=== PATIENT | male | born 1970 | race Caucasian/White ===

== ENCOUNTER 2017-08-13 14:47 | Inpatient (IN) | payer MEDICAID, OTHER ==
[~2017-08-13] VITALS: Ht 170.2 cm; Wt 137.0 kg
[2017-08-13 14:59] VITALS: BP 163/117
--- NOTE | 2017-08-13 15:07 | NUR ---
Patient to bed 07.
--- NOTE | 2017-08-13 15:08 | NUR ---
PT REFERRED TO ER PER PCP FOR EVALUATION OF ELEVATED BLOOD SUGAR. HX DM. PT STS GENERAL WEAKNESS & THRISTY. DENIES N/V/D; SKIN IS PINK/WARM/DRY; AAOX4 WITH EVEN AND STEADY GAIT; LUNGS CLEAR BL; HR EVEN AND REGULAR; PT DENIES ANY FEVER, CP, SOB, OR COUGH AT THIS TIME; PATIENT STATES PAIN OF 0/10 AT THIS TIME; VSS; PATIENT POSITIONED FOR COMFORT; HOB ELEVATED; BEDRAILS UP X2; BED DOWN. ER MD MADE AWARE OF PT STATUS.
[2017-08-13] MEDS ORDERED: NACL 0.9% 1,000 ML IV ONE ×2 (15:10→16:40)
[2017-08-13 15:24] LABS: BASOPHILS # (AUTO) 0.1 K/uL (0.00-0.22); BASOPHILS % (AUTO) 1.5 % (0.0-2.0); EOSINOPHILS # (AUTO) 0.2 K/uL (0-0.4); EOSINOPHILS % (AUTO) 1.9 % (0.0-4.0); HEMATOCRIT 48.1 % (36-52); HEMOGLOBIN 15.9 g/dL (12.0-18.0); LYMPHOCYTES # (AUTO) 2.8 K/uL (2.0-11.5); LYMPHOCYTES % (AUTO) 29.9 % (20.5-51.1); MEAN CORPUSCULAR HEMOGLOBIN 30 pg (27-31); MEAN CORPUSCULAR HGB CONC 33 g/dL (33-37); MEAN CORPUSCULAR VOLUME 91 fL (80-94); MONOCYTES # (AUTO) 0.9 K/uL (0.8-1.0); MONOCYTES % (AUTO) 9.4 % (1.7-9.3); NEUTROPHILS # (AUTO) 5.5 K/uL (1.8-7.7); NEUTROPHILS % (AUTO) 57.3 % (42.2-75.2); PLATELET COUNT (AUTO) 216 K/uL (140-450); RED CELL DISTRIBUTION WIDTH 12.4 % (11.6-13.7); WHITE BLOOD COUNT (AUTO) 9.5 K/uL (4.8-10.8)
--- NOTE | 2017-08-13 15:33 | NUR ---
Patient being evaluated by DR NOBLE at bedside.
--- NOTE | 2017-08-13 15:36 | NUR ---
EKG AT BEDSIDE.
--- NOTE | 2017-08-13 15:39 | NUR ---
X RAY AT BEDSIDE.
[2017-08-13 16:20] LABS: ALBUMIN 3.7 g/dL (3.4-5.0); ANION GAP 14.4 (8-16); CARBON DIOXIDE 23.8 mmol/L (21-32); CHLORIDE 98 mmol/L (98-107); GFR ARICAN-AMERICAN 102 mL/min (>90); POTASSIUM 4.2 mmol/L (3.5-5.1); SODIUM SERUM 132 mmol/L (136-145); TOTAL BILIRUBIN 0.3 mg/dL (0.0-1.0); UREA NITROGEN, BLOOD 15 mg/dL (7-18)
[2017-08-13 16:23] LABS: GLUCOSE 436 mg/dL (74-106)
[2017-08-13] MEDS ORDERED: INSULIN HUMAN REGULAR 100 UNITS/ML 10 ML VIAL IVP ONE (16:25)
--- NOTE | 2017-08-13 16:25 | NUR ---
GOT REPORT FROM [facility]; LAB. " [id number]" NOTIFIED DR NOBLE.
--- NOTE | 2017-08-13 16:27 | NUR ---
Patient appears to be resting comfortably in bed. BP 149/94, P 86, Respirations even and unlabored.
[2017-08-13] MEDS ORDERED: ACETAMINOPHEN 325 MG TAB PO PRN (16:35)
[2017-08-13] MEDS ORDERED: HYDROcodone/APAP 7.5/325 MG 1 TAB PO PRN (16:35)
[2017-08-13] MEDS ORDERED: MORPHINE SULFATE 2 MG/ML SYR IVP PRN (16:35)
[2017-08-13] MEDS ORDERED: ONDANSETRON 4 MG/2 ML VIAL IM/IVP PRN (16:35)
[2017-08-13] MEDS ORDERED: DOCUSATE SODIUM 100 MG GELCAP PO PRN (16:35)
[2017-08-13 16:41] LABS: ASPARTATE AMINOTRANSFERASE < 5 U/L (15-37)
[2017-08-13] MEDS ORDERED: DEXTROSE 50% 50 ML SYR IVP PRN (16:45)
--- NOTE | 2017-08-13 16:58 | NUR ---
REPORT TO IDA BENAVIDES.
--- NOTE | 2017-08-13 16:59 | NUR ---
Patient will be admitted to care of DR ROUSSEAU. Admited to TELE. Will go to room 106A. Belongings list completed. Report to IDA BENAVIDES.
[2017-08-13 17:15] VITALS: BP 145/91
--- NOTE | 2017-08-13 17:15 | NUR ---
PT ARRIVED TO UNIT FROM ER, PT IS AAOX4, ON ROOM AIR, IV TO LEFT HAND PATENT AND INTACT, SKIN INTACT, INITIAL ASSESSMENT COMPLETED, REVIEWED PLAN OF CARE WITH PT, ORIENTED PT TO ROOM AND ENVIRONMENT, CALL LIGHT WITHIN REACH. ALL SAFETY PRECAUTION IN PLACE.
[2017-08-13] MEDS: NACL 0.9% 1,000 ML IV SCH (17:26)
[2017-08-13 17:28] LABS: CHOL/HDL RATIO 5.5 (1-4.5); FREE T4 (FREE THYROXINE) 0.9 ng/dL (0.76-1.46); THYROID STIMULATING HORMONE 1.55 uIU/mL (0.34-3.74)
[2017-08-13] MEDS ORDERED: LISI-420 PO (18:32)
[2017-08-13] MEDS ORDERED: GABA300C PO (18:32)
--- NOTE | 2017-08-13 19:09 | NUR ---
ENDORSED PLAN OF CARE TO NIGHT NURSE, PT IN STABLE CONDITION
--- NOTE | 2017-08-13 19:10 | NUR ---
RECEIVED REPORT FROM AM NURSE. PT IS AAOX4, RESTING COMFORTABLY IN BED. NO SIGNS OF ACUTE DISTRESS NOTED. IV ACCESS PATENT, INTACT AND ASYMPTOMATIC. ON ROOM AIR, TELE MONITOR. BOWEL SIGNS PRESENT ON ALL FOUR QUADRANTS. PLAN OF CARE DISCUSSED, PT VERBALIZED UNDERSTANDING. BED ON LOW POSITION, BILATERAL HALF SIDE RAILS UP, CALL LIGHT WITHIN REACH, WILL CONTINUE TO MONITOR.
[2017-08-13 19:45] LABS: APPEARANCE,URINE CLEAR (CLEAR); BILIRUBIN,URINE NEGATIVE (NEGATIVE); BLOOD, URINE NEGATIVE (NEGATIVE); COLOR,URINE YELLOW (YELLOW); LEUKOCYTE ESTERASE ,URINE NEGATIVE (NEGATIVE); NITRITE, URINE NEGATIVE (NEGATIVE); UGLUCOSE 3+ (NEGATIVE)
[2017-08-13 19:48] LABS: RBC,URINE 0-5 (RARE) /HPF (0-5); WBC,URINE 0-5 (RARE) /HPF (0-5)
[2017-08-13 19:52] LABS: BARBITURATE, URINE NEG. ng/ml (NEG <=200); BENZODIAZEPINE, URINE NEG. ng/mL (NEG <=200); CANNABINOID, URINE NEG. ng/mL (NEG <=50); COCAINE, URINE NEG. ng/mL (NEG <=300); OPIATE, URINE NEG. ng/mL (NEG <=2000); PHENCYCLIDINE SCREEN,URINE NEG. ng/mL (NEG <=25)
[2017-08-13 20:00] VITALS: BP 127/74
[2017-08-13] MEDS: GABAPENTIN 300 MG CAP PO SCH (20:32)
[2017-08-13] MEDS: BLOOD GLUCOSE MONITORING 1 DEV DEV FS SCH (20:43)
[2017-08-13] MEDS: INSULIN LISPRO SLIDING SCALE 100 UNITS/ML VIAL SUBQ PRN (20:51)
--- NOTE | 2017-08-13 23:00 | NUR ---
PT IS AWAKE, RESTING COMFORTABLY IN BED. GAVE HIM A CHICKEN SALAD SANDWICH WITH MILK PER HIS REQUEST. NO SIGNS OF ACUTE DISTRESS. BED ON LOW POSITION, BILATERAL HALF SIDE RAILS UP, CALL LIGHT WITHIN REACH, WILL CONTINUE TO MONITOR.
[2017-08-14] VITALS: BP 123/83
--- NOTE | 2017-08-14 01:05 | NUR ---
NOTIFIED BY SENIOR ADVOCATE THAT PT IS HAVING UNCONTROLLED A-FIB HR 129. ASSESSED PT, VS HR 119, 02 94, BP 132/74. EKG LEAD ARE IN PLACE. PT STATES HE FEELS FINE. PT REPOSITIONED. DR MIRZA NOTIFIED, STATED HE WILL CHECK ON PT HIMSELF AND PUT IN NEW EKG READING STAT. ORDERS RECEIVED.
[2017-08-14] MEDS ORDERED: METOPROLOL 50 MG TAB PO SCH (01:15)
[2017-08-14] MEDS ORDERED: ZOLPIDEM 5 MG TAB PO SCH ×2 (01:50→23:50)
--- NOTE | 2017-08-14 01:50 | NUR ---
PT GIVEN METROPOLOL, PT TOLERATED WELL. ON TELE MONITOR. WILL CONTINUE TO MONITOR.
--- NOTE | 2017-08-14 03:12 | NUR ---
PT IS SLEEPING, EASY TO AROUSE. NO SIGNS OF ACUTE DISTRESS. BED ON LOW POSITION, BILATERAL HALF SIDE RAILS UP, CALL LIGHT WITHIN REACH, WILL CONTINUE TO MONITOR.
[2017-08-14 04:00] VITALS: BP 124/80
[2017-08-14 05:32] LABS: HEMATOCRIT 47.9 % (36-52); HEMOGLOBIN 15.7 g/dL (12.0-18.0); MEAN CORPUSCULAR HEMOGLOBIN 30 pg (27-31); MEAN CORPUSCULAR HGB CONC 33 g/dL (33-37); MEAN CORPUSCULAR VOLUME 92 fL (80-94); PLATELET COUNT (AUTO) 203 K/uL (140-450); RED BLOOD CELL COUNT(AUTO) 5.22 MIL/uL (4.20-6.10); RED CELL DISTRIBUTION WIDTH 12.5 % (11.6-13.7); WHITE BLOOD COUNT (AUTO) 9.8 K/uL (4.8-10.8)
[2017-08-14] MEDS: BLOOD GLUCOSE MONITORING 1 DEV DEV FS SCH ×4 (06:01→21:34)
[2017-08-14] MEDS: INSULIN LISPRO SLIDING SCALE 100 UNITS/ML VIAL SUBQ PRN ×4 (06:09→21:40)
[2017-08-14 06:30] LABS: ANION GAP 10.6 (8-16); CARBON DIOXIDE 25.2 mmol/L (21-32); CREATININE 0.7 mg/dL (0.7-1.3); POTASSIUM 3.8 mmol/L (3.5-5.1)
[2017-08-14] MEDS: NACL 0.9% 1,000 ML IV SCH ×4 (06:38→16:00)
[2017-08-14 06:46] LABS: EOSINOPHILS % (MANUAL) 1 % (0-4); LYMPHOCYTES % (MANUAL) 41 % (20-46); MONOCYTES % (MANUAL) 7 % (5-12)
--- NOTE | 2017-08-14 07:22 | NUR ---
ENDORSED PT TO AM NURSE FOR CONTINUITY OF CARE. PT IS IN STABLE CONDITION.
--- NOTE | 2017-08-14 07:23 | NUR ---
RECEIVED REPORT FROM FINANCIAL SERVICES OFFICER NURSE AT BEDSIDE FOR CONTINUITY OF CARE. PT IS LYING IN BED SLEEPING WITH VISIBLE RESPIRATIONS. NO SIGNS OF DISTRESS. BED IN LOW POSITION. CALL LIGHT WITHIN REACH. UPDATED BOARD. WILL CONTINUE TO MONITOR.
--- NOTE | 2017-08-14 07:45 | NUR ---
PATIENT SITTING ON BED WITH BREAKFAST TRAY IN FRONT. NO DISTRESS NOTED. DENIES ANY PAIN OR DISCOMFORTS AT THIS TIME. RESPIRATIONS EVEN, UNLABORED, ON ROOM AIR. IV IS PATENT, INTACT, AND INFUSING. SKIN COLOR APPROPRIATE TO ETHNICITY, SKIN TEMPERATURE WARM TO TOUCH, SKIN IS INTACT. MEDICATIONS DUE GIVEN. PLAN OF CARE REVIEWED WITH PATIENT. PATIENT VERBALIZED UNDERSTANDING. SAFETY MEASURES IN PLACE, CALL LIGHT WITHIN REACH. WILL CONTINUE TO MONITOR.
[2017-08-14 08:00] VITALS: BP 106/83
[2017-08-14] MEDS ORDERED: metFORMIN 500 MG TAB PO SCH (08:00)
[2017-08-14] MEDS ORDERED: TETRACAINE HCL/PF 0.5% OPTH 4 ML BTL OP PRN (08:00)
--- NOTE | 2017-08-14 08:10 | NUR ---
PT GOT UP OUT OF BED TO USE RESTROOM AND AMBULATED AROUND THE UNIT INDEPENDENTLY. WALKED WITH STEADY GAIT WITH IV POLE. NO WEAKNESS OR PAIN DURING AMBULATION WAS REPORTED BY PT.
--- NOTE | 2017-08-14 08:30 | NUR ---
DR. WHITTAKER AT BEDSIDE GIVING EYE DROP MEDICATION AND MEASURING EYES FOR GLAUCOMA. WILL CONTINUE TO MONITOR.
[2017-08-14] MEDS: FENOFIBRATE 48 MG TAB PO SCH (08:44)
[2017-08-14] MEDS: TAMSULOSIN 0.4 MG CAP PO SCH (08:44)
[2017-08-14 08:45] LABS: T4 (THYROXINE) 6.9 ug/dL (4.5 - 12.0)
[2017-08-14] MEDS: ATORVASTATIN 20 MG TAB PO SCH (08:45)
[2017-08-14] MEDS: LISINOPRIL 20 MG TAB PO SCH (08:45)
--- NOTE | 2017-08-14 09:00 | NUR ---
PATIENT LYING IN BED COMFORTABLY. NO DISTRESS NOTED. DENIES ANY PAIN AT THIS TIME. RESPIRATIONS EVEN, UNLABORED, ON ROOM AIR. MEDICATIONS DUE GIVEN. PROVIDED PATIENT EDUCATION ON DM MEDICATION REGIMEN AND SIDE EFFECTS GIVEN TO PATIENT. EDUCATED PATIENT ON S/S OF HYPO/HYPERGLYCEMIA. PATIENT VERBALIZED UNDERSTANDING. WILL CONTINUE TO MONITOR. SAFETY MEASURES IN PLACE, CALL LIGHT WITHIN REACH. WILL CONTINUE TO MONITOR.
[2017-08-14] MEDS: metFORMIN 500 MG TAB PO SCH ×2 (09:05→16:58)
--- NOTE | 2017-08-14 09:08 | NUR ---
PATIENT HAS BEEN SCREENED AND CATEGORIZED HIGH NUTRITION RISK. PATIENT WILL BE SEEN WITHIN 1-2 DAYS OF ADMISSION. 08/14/17-08/15/[address]
--- NOTE | 2017-08-14 10:40 | NUR ---
08/14/17 RD INITIAL ASSESSMENT COMPLETED PLEASE REFER TO NUTRITION ASSESSMENT UNDER CARE ACTIVITY FOR ESTIMATED NUTRITIONAL NEEDS. 1. CONTINUE 60 GMS CONSISTENT CARBOHYDRATE DIET 2. PROVIDE NUTRITION EDUCATION NEEDED 3. RD TO FOLLOW UP WITHIN 3-5 DAYS; MODERATE RISK JACK LAO RD
--- NOTE | 2017-08-14 11:00 | NUR ---
PATIENT PLACED ON NPO FOR ABDOMINAL ULTRASOUND SCHEDULED LATER TODAY.
[2017-08-14 12:00] VITALS: BP 105/64
--- NOTE | 2017-08-14 13:00 | NUR ---
PATIENT LYING IN BED SLEEPING. NO DISTRESS NOTED. RESPIRATIONS EVEN, UNLABORED, ON ROOM AIR. IV PATENT, INTACT AND INFUSING. SAFETY MEASURES IN PLACE, CALL LIGHT WITHIN REACH. WILL CONTINUE TO MONITOR.
--- NOTE | 2017-08-14 15:00 | NUR ---
US TECH CAME TO SEE PT FOR ABDOMINAL US. FOUND THAT PT HAD SOMETHING TO EAT. NO US DONE. TECH ADVISED TO HAVE PT NPO AFTER DINNER AND WILL DO ABD US IN MORNING. REINFORCED INSTRUCTIONS TO PT. STATED OK TO BE NPO AT NIGHT.
--- NOTE | 2017-08-14 15:30 | NUR ---
PATIENT SITTING IN BED WATCHING TV. NO DISTRESS NOTED. DENIES ANY PAIN. RESPIRATIONS EVEN, UNLABORED, ON ROOM AIR. MEDICATIONS GIVEN, AND REINFORCED DM MEDICATION EDUCATION AND S/S OF HYPO/HYPERGLYCEMIA. IV PATENT, INTACT, AND INFUSING. REINFORCED NPO STATUS AFTER MIDNIGHT FOR ABD ULTRASOUND TOMORROW. PATIENT VERBALIZED UNDERSTANDING. SAFETY MEASURES IN PLACE, CALL LIGHT WITHIN REACH. WILL CONTINUE TO MONITOR.
[2017-08-14 16:00] VITALS: BP 107/70
--- NOTE | 2017-08-14 17:30 | NUR ---
PATIENT AMBULATING INDEPENDENTLY AROUND HOSPITAL HALLWAYS WITH STEADY GAIT. SHOWER ORDERS PLACED BY DR. WHITTAKER. PATIENT REQUESTING TO HAVE A SHOWER AFTER DINNER. WILL CONTINUE TO MONITOR.
--- NOTE | 2017-08-14 18:00 | NUR ---
PT TRANSFERRED TO ROOM 111A. MOVED ALL PERSONAL BELONGINGS TO ROOM. PT IS SLEEPING IN BED WITH VISIBLE RESPIRATIONS. NO SIGNS OF DISTRESS. BED IN LOW POSITION. CALL LIGHT WITHIN REACH. WILL CONTINUE TO MONITOR.
--- NOTE | 2017-08-14 19:22 | NUR ---
GAVE REPORT TO AERONAUTICAL TEST ENGINEER NURSE. PATIENT IN STABLE CONDITION.
--- NOTE | 2017-08-14 19:27 | NUR ---
RECEIVED REPORT FROM AM NURSE. PT SLEEPING, EASY TO AROUSE. NO SIGNS OF ACUTE DISTRESS NOTED. IV ACCESS ASYMPTOMATIC, INTACT AND PATENT. ON ROOM AIR. BED ON LOW POSITION, BILATERAL HALF SIDE RAILS UP, CALL LIGHT WITHIN REACH, WILL CONTINUE TO MONITOR.
[2017-08-14 20:00] VITALS: BP 95/55
[2017-08-14] MEDS: GABAPENTIN 300 MG CAP PO SCH (21:35)
[2017-08-15] VITALS: BP 99/60
[2017-08-15] MEDS: NACL 0.9% 1,000 ML IV SCH ×2 (00:12→10:03)
--- NOTE | 2017-08-15 02:36 | NUR ---
PT IS SLEEPING, EASY TO AROUSE. NO SIGS OF ACUTE DISTRESS NOTED. BED ON LOW POSITION, BILATERAL HALF SIDE RAILS UP, CALL LIGHT WITHIN REACH, WILL CONTINUE TO MONITOR.
[2017-08-15 04:00] VITALS: BP 120/72
--- NOTE | 2017-08-15 04:12 | NUR ---
PATIENT LYING IN BED SLEEPING, EASY TO AROUSE. NO DISTRESS NOTED. RESPIRATIONS EVEN, UNLABORED, ON ROOM AIR. IV PATENT, INTACT AND INFUSING. SAFETY MEASURES IN PLACE, CALL LIGHT WITHIN REACH. BED ON LOW POSITION, BILATERAL HALF SIDE RAILS UIP, WILL CONTINUE TO MONITOR.
--- NOTE | 2017-08-15 05:27 | NUR ---
PT SLEEPING, EASY TO AROUSE. NO DISTRESS NOTED. RESPIRATIONS EVEN, UNLABORED, ON ROOM AIR. SAFETY MEASURES IN PLACE, CALL LIGHT WITHIN REACH. BED ON LOW POSITION, BILATERAL HALF SIDE RAILS UIP, WILL CONTINUE TO MONITOR.
[2017-08-15 05:57] LABS: BASOPHILS # (AUTO) 0.4 K/uL (0.00-0.22); BASOPHILS % (AUTO) 4.1 % (0.0-2.0); EOSINOPHILS # (AUTO) 0.2 K/uL (0-0.4); EOSINOPHILS % (AUTO) 1.9 % (0.0-4.0); HEMATOCRIT 47.5 % (36-52); LYMPHOCYTES # (AUTO) 2.8 K/uL (2.0-11.5); LYMPHOCYTES % (AUTO) 30.9 % (20.5-51.1); MEAN CORPUSCULAR HEMOGLOBIN 31 pg (27-31); MEAN CORPUSCULAR HGB CONC 34 g/dL (33-37); MEAN CORPUSCULAR VOLUME 90 fL (80-94); MONOCYTES # (AUTO) 0.7 K/uL (0.8-1.0); MONOCYTES % (AUTO) 7.6 % (1.7-9.3); NEUTROPHILS # (AUTO) 4.8 K/uL (1.8-7.7); NEUTROPHILS % (AUTO) 55.5 % (42.2-75.2); PLATELET COUNT (AUTO) 193 K/uL (140-450); RED BLOOD CELL COUNT(AUTO) 5.26 MIL/uL (4.20-6.10); RED CELL DISTRIBUTION WIDTH 12.3 % (11.6-13.7); WHITE BLOOD COUNT (AUTO) 8.9 K/uL (4.8-10.8)
[2017-08-15 06:16] LABS: ANION GAP 11.1 (8-16); CREATININE 0.8 mg/dL (0.7-1.3); POTASSIUM 4.1 mmol/L (3.5-5.1)
[2017-08-15] MEDS: BLOOD GLUCOSE MONITORING 1 DEV DEV FS SCH ×2 (06:35→11:17)
[2017-08-15] MEDS: INSULIN LISPRO SLIDING SCALE 100 UNITS/ML VIAL SUBQ PRN ×2 (06:38→11:18)
--- NOTE | 2017-08-15 07:25 | NUR ---
ASSUMED CONTINUITY OF CARE. NO SIGNS AND SYMPTOMS OF ACUTE DISTRESS NOTED. INITIAL ASSESSMENT DONE. KEEP COMFORTABLE ON BED. EXPLAINED DIAGNOSIS, PLAN OF CARE, PAIN MANAGEMENT TEACHING, USE OF CALL LIGHT/BED/TV/BATHROOM. VERBALIZED UNDERSTANDING. CALL LIGHT WITHIN REACH.
--- NOTE | 2017-08-15 07:43 | NUR ---
ENDORSED PT TO AM NURSE FOR CONTINUITY OF CARE. PT IS IN STABLE CONDITION
[2017-08-15] MEDS: TAMSULOSIN 0.4 MG CAP PO SCH (07:51)
[2017-08-15] MEDS: metFORMIN 500 MG TAB PO SCH (07:51)
[2017-08-15 08:00] VITALS: BP 142/92
[2017-08-15] MEDS: ATORVASTATIN 20 MG TAB PO SCH (08:45)
[2017-08-15] MEDS: FENOFIBRATE 48 MG TAB PO SCH (08:46)
[2017-08-15] MEDS: LISINOPRIL 20 MG TAB PO SCH (08:51)
--- NOTE | 2017-08-15 10:11 | NUR ---
DR. ROUSSEAU AND GROUP OF RESIDENTS MD MADE THEIR ROUNDS AND SPOKE TO PT..
--- NOTE | 2017-08-15 10:50 | NUR ---
AMBULATES ON HALLWAY WITHOUT ASSISTANCE. TOLERATED WELL. HAD STEADY GAIT AND BALANCE. NO C/O PAIN. NO SOB, NOTED.
[2017-08-15 12:00] VITALS: BP 115/66
[2017-08-15] MEDS ORDERED: LISI-420 PO (13:12)
[2017-08-15] MEDS ORDERED: ACET-9529 PO (13:12)
[2017-08-15] MEDS ORDERED: TAMS0.4C96 PO (13:12)
[2017-08-15] MEDS ORDERED: HUMSLIDE SUBQ (13:12)
[2017-08-15] MEDS ORDERED: GLU500 PO (13:12)
[2017-08-15] MEDS ORDERED: GABA300C PO (13:12)
[2017-08-15] MEDS ORDERED: ATOR20TA40 PO (13:12)
--- NOTE | 2017-08-15 13:30 | NUR ---
EXPLAINED ABOUT MD D/C ORDER, D/C INSTRUCTIONS AND TEACHING, MD FOLLOW-UP, DM EDUCATIONS AND INSULIN ADMINISTRATION PER MD ORDER, MD PRESCRIPTIONS LIST EDUCATION, PAIN MANAGEMENT TEACHING. VERBALIZED UNDERSTANDING.
--- NOTE | 2017-08-15 14:15 | NUR ---
REFUSED WHEELCHAIR FOR D/C. D/C HOME, AWAKE, ALERT, AND ORIENTED X4. SPEECH CLEAR. NO C/O PAIN. IN STABLE CONDITION. INFORMED CHARGE NURSE SALVATORE HAWK.
== END 2017-08-15 14:15 | disposition home or self-care (01) | DRG 420 ==
LOC: MED 14:47 → MTU 16:41
PROVIDERS: ADMIT Family Medicine; ATTEND Family Medicine
DX: E11.65 Type 2 diabetes mellitus with hyperglycemia (principal); N17.0 Acute kidney failure with tubular necrosis; K85.90 Acute pancreatitis without necrosis or infection, unspecified; Z68.42 Body mass index [BMI] 45.0-49.9, adult; D68.59 Other primary thrombophilia; E66.01 Morbid (severe) obesity due to excess calories; E78.5 Hyperlipidemia, unspecified; H40.9 Unspecified glaucoma; F15.10 Other stimulant abuse, uncomplicated; I10 Essential (primary) hypertension; R33.9 Retention of urine, unspecified; F17.210 Nicotine dependence, cigarettes, uncomplicated; E87.1 Hypo-osmolality and hyponatremia; Z88.8 Allergy status to other drugs, medicaments and biological substances; Z79.899 Other long term (current) drug therapy; Z83.3 Family history of diabetes mellitus; Z71.3 Dietary counseling and surveillance; Z71.6 Tobacco abuse counseling; Z79.84 Long term (current) use of oral hypoglycemic drugs
CPT/HCPCS: 36415; 36600; 71010; 76700; 80048; 80053; 80305; 81001; 82150; 82803; 82948; 83036; 83690; 83735; 83880; 84100; 84436; 84439; 84443; 84479; 84484; 85025; 85610; 85730; 87081; 93005; 93925; 93970; 96361; 96374; 99285; J1815; J7030; Q0092

== ENCOUNTER 2018-05-12 11:27 | Emergency (ER) | payer SELFPAY ==
[~2018-05-12] VITALS: Ht 175.3 cm; Wt 131.1 kg
[~2018-05-12 11:27] MED LIST: ACET-9529 PO; ATOR20TA40 PO; GABA300C PO; GLU500 PO; HUMSLIDE SUBQ; LISI-420 PO; TAMS0.4C96 PO
[2018-05-12 11:29] VITALS: BP 107/71
--- NOTE | 2018-05-12 11:30 | NUR ---
48/M SHIREEN FROM FIELD FOR SUDDEN ONSET OF SOB, ON ARRIVAL HE IS AWAKE AND ALERT ON HHN PER EMS ABLE TO SPEAK IN FULL SENTENCES.DENIES N/V/D; SKIN IS PINK/WARM/DRY; AAOX4 WITH EVEN AND STEADY GAIT; LUNGS CLEAR BL; HR EVEN AND REGULAR; PT DENIES ANY FEVER, CP OR COUGH AT THIS TIME; PATIENT STATES PAIN OF 0/10 AT THIS TIME; VSS; PATIENT POSITIONED FOR COMFORT; HOB ELEVATED; BEDRAILS UP X2; BED DOWN. ER MADE AWARE OF PT STATUS. Addendum: 05/12/18 at 1204 by [email or web address] hx of dm .pt stated ran out of meds.
--- NOTE | 2018-05-12 11:32 | NUR ---
Patient being evaluated by DR SANTIAGO at bedside.
[2018-05-12] MEDS ORDERED: methylPREDNISolone SS 125 MG/2 ML VIAL IVP ONE (12:05)
[2018-05-12] MEDS ORDERED: MAG SULF 2000 MG/WATER PREMIX 50 ML IV ONE (12:05)
[2018-05-12] MEDS ORDERED: NACL 0.9% 1,000 ML IV ONE (12:05)
[2018-05-12] MEDS: MAGNESIUM SULFATE 1GM in DEXTROSE 5% 100 ML PREMIX IV SCH ×2 (12:17→13:51)
[2018-05-12 12:28] LABS: BASOPHILS % (AUTO) 0.4 % (0.0-2.0); EOSINOPHILS # (AUTO) 0.1 K/uL (0-0.4); EOSINOPHILS % (AUTO) 0.6 % (0.0-4.0); HEMATOCRIT 48.2 % (36-52); LYMPHOCYTES # (AUTO) 3.2 K/uL (2.0-11.5); MEAN CORPUSCULAR HEMOGLOBIN 30 pg (27-31); MEAN CORPUSCULAR HGB CONC 33 g/dL (33-37); MEAN CORPUSCULAR VOLUME 91.7 fL (80-94); MONOCYTES # (AUTO) 0.7 K/uL (0.8-1.0); MONOCYTES % (AUTO) 7.7 % (1.7-9.3); NEUTROPHILS # (AUTO) 5.4 K/uL (1.8-7.7); NEUTROPHILS % (AUTO) 57.3 % (42.2-75.2); PLATELET COUNT (AUTO) 225 K/uL (140-450); RED BLOOD CELL COUNT(AUTO) 5.25 MIL/uL (4.20-6.10); RED CELL DISTRIBUTION WIDTH 13.2 % (11.6-13.7); WHITE BLOOD COUNT (AUTO) 9.4 K/uL (4.8-10.8)
[2018-05-12 12:45] LABS: PROTHROMBIN TIME 10.2 secs (10.8-13.4)
[2018-05-12 12:52] LABS: ANION GAP 15.3 (8-16); CARBON DIOXIDE 25.6 mmol/L (21-32); CREATININE 1.5 mg/dL (0.7-1.3); POTASSIUM 3.9 mmol/L (3.5-5.1)
[2018-05-12 12:54] LABS: ALBUMIN 3.6 g/dL (3.4-5.0); TOTAL BILIRUBIN 0.7 mg/dL (0.0-1.0)
[2018-05-12 15:00] VITALS: BP 99/67
== END 2018-05-12 15:00 | disposition home or self-care (01) ==
LOC: MED 11:27
DX: J45.909 Unspecified asthma, uncomplicated (principal); E11.9 Type 2 diabetes mellitus without complications; Z88.8 Allergy status to other drugs, medicaments and biological substances
CPT/HCPCS: 36415; 71045; 80053; 81002; 85025; 85610; 85730; 93005; 96365; 96366; 96375; 99285; J2930; Q0092